=== PATIENT | male | born 2000 | race Caucasian/White ===

== ENCOUNTER 2023-01-15 15:42 | Emergency (ER) | payer SELFPAY ==
[~2023-01-15] VITALS: Ht 167.6 cm; Wt 86.0 kg
[2023-01-15 16:00] VITALS: BP 126/75; PULSE 113; RESP 20; TEMP 98.3; O2SAT 100
[2023-01-15] MEDS ORDERED: LEVE500T19 MT (16:06)
== END 2023-01-15 16:28 | disposition home or self-care (01) ==
LOC: ER 16:17
DX: Z76.0 Encounter for issue of repeat prescription (principal); R56.9 Unspecified convulsions
CPT/HCPCS: 99281; 99283

== ENCOUNTER 2023-03-31 09:32 | Emergency (ER) | payer OTHER ==
[~2023-03-31] VITALS: Ht 175.3 cm; Wt 90.0 kg
[~2023-03-31 09:32] MED LIST: LEVE500T19 MT
[2023-03-31 09:38] VITALS: BP 119/75; TEMP 98.5; O2SAT 98
[2023-03-31 09:40] VITALS: PULSE 96; RESP 16
[2023-03-31] MEDS ORDERED: LIDOCAINE HCL 1% 20ML VIAL (Pyxis) INJ INFIL ONE (10:15)
[2023-03-31] MEDS ORDERED: TETANUS, DIPHTHERIA, PERTUSSIS VAC/PF 0.5ML (>10YR OLD) IM ONE (10:30)
[2023-03-31] MEDS ORDERED: TOPUD MT (14:16)
[2023-03-31] MEDS ORDERED: IBUP-2030 MT (14:16)
== END 2023-03-31 14:38 | disposition home or self-care (01) ==
LOC: ER 09:32
DX: S61.215A Laceration without foreign body of left ring finger without damage to nail, initial encounter (principal); Z86.59 Personal history of other mental and behavioral disorders; X58.XXXA Exposure to other specified factors, initial encounter; Y93.89 Activity, other specified; Y92.89 Other specified places as the place of occurrence of the external cause; Y99.8 Other external cause status
CPT/HCPCS: 90715; 12002; 90471; 99283; J3490; Z7610 ×2

== ENCOUNTER 2023-04-08 08:33 | Emergency (ER) | payer OTHER ==
[~2023-04-08] VITALS: Ht 172.7 cm; Wt 100.0 kg
[~2023-04-08 08:33] MED LIST changes: +IBUP-2030 MT; +TOPUD MT
[2023-04-08 08:57] VITALS: O2SAT 99
[2023-04-08 10:53] VITALS: BP 123/78; PULSE 89; RESP 18; TEMP 98.5
== END 2023-04-08 10:54 | disposition home or self-care (01) ==
LOC: ER 08:33
DX: Z48.02 Encounter for removal of sutures (principal); Z86.59 Personal history of other mental and behavioral disorders
CPT/HCPCS: 99281; Z7610

== ENCOUNTER 2023-04-21 10:00 | Emergency (ER) | payer OTHER ==
[~2023-04-21] VITALS: Ht 172.7 cm; Wt 72.6 kg
[2023-04-21 10:05] VITALS: O2SAT 99
[2023-04-21] MEDS ORDERED: KEPP500 MT (10:11)
[2023-04-21 10:59] VITALS: BP 124/84; PULSE 88; RESP 16; TEMP 98.2
== END 2023-04-21 11:00 | disposition home or self-care (01) ==
LOC: ER 10:00
DX: Z76.0 Encounter for issue of repeat prescription (principal)
CPT/HCPCS: 99281; 99283